=== PATIENT | male | born 1975 | race Caucasian/White ===

== ENCOUNTER 2017-12-31 09:51 | Emergency (ER) | payer BC ==
[2017-12-31] MEDS ORDERED: Ketorolac 60 MG/2 ML SDV IM ONE (10:41)
--- NOTE | 2017-12-31 10:47 | EDM.PDOC ---
ED HPI GENERAL MEDICAL PROBLEM - General Chief Complaint: Upper Extremity Injury/Pain Stated Complaint: SHARP PAIN IN LEFT SHOULDER, SHOOTING DOWN ARM Time Seen by Provider: 12/31/17 10:30 Source of Information: Reports: Patient History Limitations: Reports: No Limitations - History of Present Illness INITIAL COMMENTS - FREE TEXT/NARRATIVE: 42 yo [place] presents with L upper/anterior chest pain. Sx's were intermittent for about a week, now constant. Denies injury. No SOB, nausea or diaphoresis. Has risk factors for CAD including elevated cholesterol, mildly overweight, and possibly untreated HTN so is concerned this may be his heart. Swimming(light) worsened his sx's last night. No self tx attempts. Some radiation down the L arm, feels heavy and a little numb. Onset: Gradual Onset Date: 12/25/17 Duration: Day(s):, Getting Worse Location: Reports: Chest (L ant/upper) Quality: Reports: Ache Severity: Moderate Improves with: Reports: Rest Worsens with: Reports: Movement Context: Reports: Other (unknown) Associated Symptoms: Reports: No Other Symptoms Treatments [employer]: Reports: Other (see below) (none) Left Upper Chest Pain Score (Numeric/FACES): 6 - Related Data Allergies Allergy/AdvReac Type Severity Reaction Status Date / Time No Known Allergies Allergy Verified 12/31/17 10:14 Home Meds: Home Meds Ibuprofen [Advil] 600 mg PO Q6H PRN 12/31/17 [History] Omeprazole 20 mg PO DAILY 12/31/17 [History] Past Medical History Neurological History: Reports: Concussion Psychiatric History: Reports: Anxiety Endocrine/Metabolic History: Reports: Obesity/BMI 30+ - Infectious Disease History Infectious Disease History: Reports: Chicken Pox - Past Surgical History Head Surgeries/Procedures: Reports: None Endocrine Surgical History: Reports: None Neurological Surgical History: Reports: None Dermatological Surgical History: Reports: None Social & Family History - Tobacco Use Smoking Status *Q: Never Smoker Second Hand Smoke Exposure: No - Caffeine Use Caffeine Use: Reports: Coffee, Energy Drinks, Soda - Alcohol Use Days Per Week of Alcohol Use: 3 Number of Drinks Per Day: 1 Total Drinks Per Week: 3 - Recreational Drug Use Recreational Drug Use: No Review of Systems - Review of Systems Review Of Systems: See Below Constitutional: Reports: No Symptoms Respiratory: Reports: No Symptoms Cardiovascular: Reports: No Symptoms GI/Abdominal: Reports: No Symptoms Musculoskeletal: Reports: Arm Pain (left), Other (L upper/anterior chest wall tenderness.) Skin: Reports: No Symptoms Neurological: Reports: Numbness (mild numbness/heaviness of L arm. ) Psychiatric: Reports: No Symptoms ED EXAM, GENERAL - Physical Exam Exam: See Below Exam Limited By: No Limitations General Appearance: Alert, WD/WN, No Apparent Distress Eye Exam: Bilateral Eye: Normal Inspection Ears: Normal External Exam, Normal Canal, Hearing Grossly Normal, Normal TMs Ear Exam: Bilateral Ear: Auricle Normal, Canal Normal, TM normal Nose: Normal Inspection, Normal Mucosa, No Blood Throat/Mouth: Normal Inspection, Normal Lips, Normal Oropharynx, Normal Voice, No Airway Compromise Head: Atraumatic, Normocephalic Neck: Normal Inspection, Supple, Non-Tender Respiratory/Chest: No Respiratory Distress, Lungs Clear, Normal Breath Sounds, No Accessory Muscle Use Cardiovascular: Regular Rate, Rhythm, No Edema GI/Abdominal: Normal Bowel Sounds, Soft, Non-Tender, No Distention Back Exam: Normal Inspection. No: CVA Tenderness (R), CVA Tenderness (L) Extremities: Normal Inspection, Normal Range of Motion, Non-Tender, No Pedal Edema Neurological: Alert, Oriented, CN II-XII Intact, Normal Cognition, No Motor/ Sensory Deficits Psychiatric: Normal Affect, Normal Mood Skin Exam: Warm, Dry, Intact, Normal Color, No Rash Lymphatic: No Adenopathy EKG INTERPRETATION EKG Date: 12/31/17 Time: 15:00 Rhythm: NSR Rate (Beats/Min): 63 [place]: Normal P-Wave: Present QRS: Normal ST-T: Elevated (1 mm elevation in inferior leads.) QT: Normal Comparison: NA - No Prior EKG Course - Vital Signs Text/Narrative:: EKG obtained from [facility] in [place]. ST elevation/early repolarization was present back in ' on an old EKG Last Recorded V/S: Last Vital Signs Temp 36.1 C 12/31/17 10:23 Pulse 73 12/31/17 10:23 Resp 16 12/31/17 10:23 BP 152/99 H 12/31/17 10:23 Pulse Ox 99 12/31/17 10:23 - Orders/Labs/Meds Orders: Active Orders 24 hr Category Date Time Status EKG Documentation Completion [RC] ASDIRECTED Care 12/31/17 10:41 Active EKG 12 Lead [EK] Routine Ther 12/31/17 10:41 Ordered Labs: Laboratory Tests 12/31/17 12/31/17 Range/Units 11:20 11:20 Troponin I < 0.017 (0.000-0.056) ng/mL C-Reactive Protein 0.19 (0.0-0.3) mg/dL Meds: Medications Discontinued Medications Generic Name Dose Route Start Last Admin Trade Name Rajani PRN Reason Stop Dose Admin Ketorolac Tromethamine 60 mg 12/31/17 10:41 12/31/17 11:10 Toradol IM 12/31/17 10:42 60 mg ONETIME ONE Administration - Radiology Interpretation Free Text/Narrative:: Rib [id number] Departure - Departure Time of Disposition: 14:41 Disposition: Home, Self-Care 01 Condition: Good Clinical Impression: Intercostal muscle strain Qualifiers: Encounter type: initial encounter Qualified Code(s): S29.011A - Strain of muscle and tendon of front wall of thorax, initial encounter - Discharge Information *PRESCRIPTION DRUG MONITORING PROGRAM REVIEWED*: No *COPY OF PRESCRIPTION DRUG MONITORING REPORT IN PATIENT NELIA: No Referrals: PCP,None [Primary Care Provider] - Forms: ED Department Discharge Additional Instructions: Take ibuprofen and/or acetaminophen as needed for pain relief. Add Tramadol for additional relief. Recheck of your BP with your doctor when you return home. Avoid salty foods, limit caffeine and alcohol. - My Orders Last 24 Hours: My Active Orders 12/31/17 10:41 EKG Documentation Completion [RC] ASDIRECTED EKG 12 Lead [EK] Routine - Assessment/Plan Last 24 Hours: My Active Orders 12/31/17 10:41 EKG Documentation Completion [RC] ASDIRECTED EKG 12 Lead [EK] Routine
--- NOTE | 2017-12-31 11:27 | CR ---
Ribs 2V w Chest Lt CLINICAL HISTORY: Left chest pain FINDINGS: Lung abdi are clear. There is no acute fracture within the ribs. No destructive changes a re seen. There is no focal pleural thickening or obvious effusion. IMPRESSION: Negative left ribs.
== END 2017-12-31 10:51 | disposition home or self-care (01) ==
LOC: JP.ED 09:51
DX: S29.011A Strain of muscle and tendon of front wall of thorax, initial encounter (principal); F41.9 Anxiety disorder, unspecified; X58.XXXA Exposure to other specified factors, initial encounter
CPT/HCPCS: 36415; 71101; 84484; 86140; 93005; 96372; 99284; J1885